=== PATIENT | female | born 1950 | race Hispanic/Latino ===

== ENCOUNTER 2020-11-10 18:21 | Emergency (ER) | payer OTHER, MEDICARE ==
[~2020-11-10] VITALS: Ht 152.4 cm; Wt 86.2 kg
[~2020-11-10 18:21] MED LIST: ATENOLOL25 MG PO; LOSARTAN POTAS100 MG PO
== END 2020-11-10 19:36 | disposition home or self-care (01) ==
LOC: ER 18:26
DX: R05 Cough (principal); R06.02 Shortness of breath; I10 Essential (primary) hypertension
CPT/HCPCS: 71045; 99283

== ENCOUNTER 2020-11-16 10:02 | Emergency (ER) | payer OTHER, MEDICARE ==
[~2020-11-16] VITALS: Ht 152.4 cm; Wt 86.2 kg
[2020-11-16] MEDS ORDERED: ASPIRIN 81 MG CHEW TAB PO ONE (10:15)
[2020-11-16 10:37] LABS: BASOPHILS % 0.1 % (0.0-1.0); HEMATOCRIT 44.3 % (34.2-44.1); HEMOGLOBIN 14.6 g/dL (12.0-16.0); LYMPHOCYTES # (AUTO) 1.4 (1.0-3.2); LYMPHOCYTES % 17.4 % (18.0-39.1); MEAN CORPUSCULAR HEMOGLOBIN 29.8 pg (28-32); MEAN CORPUSCULAR VOLUME 90.4 fL (81-99); MONOCYTES # (AUTO) 0.7 (0.2-0.8); NEUTROPHILS # (AUTO) 5.8 (2.1-6.9); NEUTROPHILS % 72.9 % (38.7-80.0); PLATELET COUNT 199 x10e3/uL (140-360); RED CELL DISTRIBUTION WIDTH 13.6 % (11.7-14.4)
[2020-11-16 10:56] LABS: ALBUMIN 3.5 g/dL (3.5-5.0); ALBUMIN/GLOBULIN RATIO 0.7 (0.8-2.0); ANION GAP 15.6 mmol/L (8-16); CALCIUM 8.9 mg/dL (8.4-10.2); CREATININE, SERUM 1.36 mg/dL (0.57-1.11); POTASSIUM 3.6 mmol/L (3.5-5.1)
[2020-11-16 11:03] LABS: CREATINE KINASE MB 0.3 ng/mL (0-5.0)
[2020-11-16 11:55] LABS: CREATINE KINASE MB 0.2 ng/mL (0-5.0)
[2020-11-16] MEDS ORDERED: ZOFRAN4 MG SL (12:16)
[2020-11-16] MEDS ORDERED: DECADRON4 M1 PO (12:16)
[2020-11-16] MEDS ORDERED: TYLENOL # 31 EA PO (12:16)
== END 2020-11-16 12:26 | disposition home or self-care (01) ==
LOC: ER 10:59
DX: U07.1 COVID-19 (principal); R11.0 Nausea; R53.1 Weakness; R53.81 Other malaise; R94.31 Abnormal electrocardiogram [ECG] [EKG]; I10 Essential (primary) hypertension
CPT/HCPCS: 36415; 71045; 80053; 82550; 82553; 84484; 85025; 93005; 99284; U0002

== ENCOUNTER 2020-12-01 09:05 | Emergency (ER) | payer OTHER, MEDICARE ==
[~2020-12-01] VITALS: Ht 152.4 cm; Wt 86.2 kg
[~2020-12-01 09:05] MED LIST changes: +DECADRON4 M1 PO; +TYLENOL # 31 EA PO; +ZOFRAN4 MG SL
[2020-12-01 09:36] LABS: BASOPHILS % 0.3 % (0.0-1.0); EOSINOPHILS # (AUTO) 0.1 (0.0-0.4); EOSINOPHILS % 0.9 % (0.0-6.0); HEMATOCRIT 38.1 % (34.2-44.1); HEMOGLOBIN 12.2 g/dL (12.0-16.0); LYMPHOCYTES # (AUTO) 1.9 (1.0-3.2); LYMPHOCYTES % 25.3 % (18.0-39.1); MEAN CORPUSCULAR HEMOGLOBIN 29.4 pg (28-32); MEAN CORPUSCULAR VOLUME 91.8 fL (81-99); MONOCYTES # (AUTO) 0.7 (0.2-0.8); NEUTROPHILS # (AUTO) 4.7 (2.1-6.9); PLATELET COUNT 204 x10e3/uL (140-360); RED BLOOD COUNT 4.15 x10e6/uL (3.6-5.1); RED CELL DISTRIBUTION WIDTH 13.4 % (11.7-14.4)
[2020-12-01 10:06] LABS: ALBUMIN 3.3 g/dL (3.5-5.0); ALBUMIN/GLOBULIN RATIO 0.9 (0.8-2.0); ANION GAP 14.9 mmol/L (8-16); CALCIUM 8.7 mg/dL (8.4-10.2); POTASSIUM 3.9 mmol/L (3.5-5.1)
[2020-12-01] MEDS ORDERED: ULTRAM50 MG PO (11:22)
[2020-12-01 11:47] VITALS: BP 152/82
== END 2020-12-01 12:01 | disposition home or self-care (01) ==
LOC: ER 09:46
DX: S01.01XA Laceration without foreign body of scalp, initial encounter (principal); W01.198A Fall on same level from slipping, tripping and stumbling with subsequent striking against other object, initial encounter; Y92.008 Other place in unspecified non-institutional (private) residence as the place of occurrence of the external cause; I10 Essential (primary) hypertension; R94.31 Abnormal electrocardiogram [ECG] [EKG]
CPT/HCPCS: 36415; 70450; 71045; 72170; 80053; 83880; 84484; 85025; 93005; 99284

== ENCOUNTER → 2020-12-29 | Outpatient (CLI) | payer OTHER ==
[~2020-12-29] MED LIST changes: +ULTRAM50 MG PO
== END ==
LOC: MRI 12:27
PROVIDERS: ATTEND Family Medicine
DX: R26.81 Unsteadiness on feet (principal)
CPT/HCPCS: 70551